=== PATIENT | male | born 1960 | race African-American/Black ===

== ENCOUNTER 2018-03-18 08:16 | Inpatient (IN) | payer BC, OTHER ==
[~2018-03-18] VITALS: Ht 185.4 cm; Wt 136.0 kg
[2018-03-18] VITALS (22 sets, daily range): BP systolic 111–155; BP diastolic 67–102
--- NOTE | ~2018-03-18 | 2DMMODE ---
[facility] [place] [address] 2 D/M-MODE ECHOCARDIOGRAM Name: JASONSADE Room #: 211-P [facility] IN ..#: [id number] Admission: 03/18/18 Attend Phys: Shi Pappas Discharge: Date of : 64 Date of Service: 03/18/18 1523 Report #: [id number] THIS REPORT FOR: //name// APPROVED REPORT Study performed: 03/18/2018 13:54:28 EXAM: Comprehensive 2D, Doppler, and color-flow Echocardiogram Patient Location: ER Status: routine BSA: 2.61 HR: 115 bpm BP: 122/76 mmHg Rhythm: Tachycardia Other Information Study Quality: Adequate Indications Pulmonary Embolism Syncope Tachycardia. Hx: DM 2D Dimensions RVDd: 47.01 mm IVSd: 12.00 (7-11mm) LVOT Diam: 22.79 (18-24mm) LVDd: 45.00 mm PWd: 12.00 (7-11mm) Ascending Ao: 33.08 (22-36mm) LVDs: 33.11 (25-40mm) Aortic Root: 34.52 mm Volumes Left Atrial Volume (Systole) Single Plane 4CH: 44.49 mL Single Plane 2CH: 51.57 mL LA ESV Index: 20.00 mL/m2 Aortic Valve AoV Peak Ramiro.: 0.94 m/s AO Peak Gr.: 3.51 mmHg LVOT Max P.89 mmHg LVOT Max V: 0.69 m/s CARLOS Vmax: 2.99 cm2 Mitral Valve E/A Ratio: 0.5 [facility] [address] [place] [address] 2 D/M-MODE ECHOCARDIOGRAM Name: SADE GOMEZ Room #: 211-P ADM IN ..#: [id number] Admission: 03/18/18 Attend Phys: Shi Pappas Discharge: Date of : 64 Date of Service: 03/18/18 1523 Report #: [id number] MV Decel. Time: 128.97 ms MV E Max Ramiro.: 0.35 m/s MV A Ramiro.: 0.70 m/s MV PHT: 37.40 ms Pulmonary Valve PV Peak Ramiro.: 0.53 m/s PV Peak Gr.: 1.12 mmHg Tricuspid Valve TR Peak Ramiro.: 3.09 m/s RAP Estimate: 15.00 mmHg TR Peak Gr.: 38.16 mmHg PA Pressure: 53.00 mmHg Left Ventricle The left ventricle is normal size. Paradoxical septal motion noted. Mild concentric left ventricular hypertrophy. The left ventricular systolic function is low normal. LVEF is 50%. Mild diastolic dysfunction is present (impaired relaxation pattern). Right Ventricle Right ventricle is mildly dilated. Right ventricle is mildly hypokinetic. Atria The left atrium size is normal. Right atrium is mildly dilated. Aortic Valve The aortic valve is normal in structure. No aortic regurgitation is present. There is no aortic valvular stenosis. Mitral Valve The mitral valve is normal in structure. Trace mitral regurgitation. Tricuspid Valve The tricuspid valve is normal in structure. Mild to moderate tricuspid regurgitation. Estimated pulmonary artery pressure is 50-55mmHg. Pulmonic Valve Pulmonic valve is not well visualized. Trace pulmonic regurgitation. Great Vessels The aortic root is normal in size. The ascending aorta is normal in [facility] [address] [place] [address] 2 D/M-MODE ECHOCARDIOGRAM Name: SADE GOMEZ Room #: 211-P ADM IN M.R.#: [id number] Admission: 03/18/18 Attend Phys: Shi Pappas Discharge: Date of : 64 Date of Service: 03/18/18 1523 Report #: [id number] size. IVC is dilated and collapses <50% with inspiration. Pericardium There is no pericardial effusion. <Conclusion> The left ventricle is normal size. LVEF is 50%. Right ventricle is mildly dilated. Right ventricle is mildly hypokinetic. The aortic valve is normal in structure. The mitral valve is normal in structure. The tricuspid valve is normal in structure. Mild to moderate tricuspid regurgitation. Estimated pulmonary artery pressure is 50-55mmHg. Pulmonic valve is not well visualized. Trace pulmonic regurgitation. There is no pericardial effusion. <ELECTRONICALLY SIGNED> By: Greg Pulido MD 03/18/18 1523 1523 1523 Greg Pulido MD /INF
--- NOTE | ~2018-03-18 | HC ---
[facility] [place] [address] CONSULTATION Name: SADE GOMEZ Room #: 247-P ADM IN M.R.#: [id number] Admission: 03/18/18 Attend Phys: Red Pace MD Discharge: Date of : 64 Report #: [id number] THIS REPORT FOR: //name// CC: Vargas Pace TYPE OF REPORT: Pulmonary consultation. PRIMARY CARE PHYSICIAN: Vargas Kaufman D.O. REFERRING PHYSICIAN: Red Pace M.D. REASON FOR REFERRAL: Pulmonary embolus. HISTORY OF PRESENT ILLNESS: The patient is a 57-year-old -Citizen Of [place] male who presents to the Emergency Room following a syncopal episode. Workup included CT chest angiogram, which showed large bilateral pulmonary embolus. A Pulmonary consultation was requested. The patient states that he was doing fairly well until this morning when he woke up, got up to the restroom and he felt lightheaded and dizzy. He then proceeded to pass out. He states that he passed on his bedroom. He denies any trauma from his syncopal episode. He denies any head trauma. He states that he has passed out in the past few years ago, but that was from after drinking alcohol. He notes that CT chest angiogram shows a large bilateral saddle embolus. Ultrasound also shows evidence of DVT. Otherwise, the patient denies any recent travel. Denies any recent trauma or any surgery. He denies any recent neurologic surgery or ophthalmologic surgery. He does note that a cousin has pulmonary embolus. Cousin from venous thromboembolic disease. PAST MEDICAL HISTORY: Notable for diabetes. PAST SURGICAL HISTORY: Otherwise, unremarkable. ALLERGIES: None. CURRENT MEDICATIONS: Glucophage and Jardiance. FAMILY HISTORY: As mentioned above, cousin with venous thromboembolic disease, otherwise unremarkable. [facility] [address] [place] [address] CONSULTATION Name: SADE GOMEZ Room #: 247-P [facility].#: [id number] Admission: 03/18/18 Attend Phys: Red Pace MD Discharge: Date of : 64 Report #: [id number] SOCIAL HISTORY: Denies any tobacco or alcohol use. REVIEW OF SYSTEMS: As mentioned above, otherwise 10-point system review negative. PHYSICAL EXAMINATION: GENERAL: He is awake and alert, in no apparent distress. VITAL SIGNS: Temperature is 98 degrees Fahrenheit, pulse is 108, respiratory rate is 26, blood pressure is 130/92 mmHg and saturation is 100%. HEENT: Normocephalic and atraumatic. NECK: Supple, without any lymphadenopathy or thyromegaly. CHEST: Breath sounds are clear anteriorly without any rales or wheezes. CARDIOVASCULAR: Heart sounds are distant. Normal S1 and S2. There are no obvious murmurs or gallop. Pulses are 2+/4+ bilaterally. ABDOMEN: Soft and nontender. No organomegaly or masses felt. GENITOURINARY: Deferred. RECTAL: Deferred. EXTREMITIES: There is no edema, cyanosis or clubbing. RADIOLOGICAL DATA: CT chest angiogram as mentioned above. Echocardiogram shows mildly dilated right ventricle and right atrium, LV function is normal, ejection fraction 50% and pulmonary artery pressure measured about 50-55 mmHg. Leg Doppler ultrasound shows a right leg [id number] incomplete occlusive femoral venous thrombus, left lower extremity was normal. CT abdomen and pelvis was otherwise unremarkable other than a grade 1-2 anterior spondylolisthesis involving L5 and S1. CT head was unremarkable. EKG shows sinus tachycardia. LABORATORY DATA: D-dimer was 3.8. Sodium 137, potassium 4.2, chloride 102, CO2 is 26, BUN is 16 and creatinine is 1.5. Liver enzymes are elevated. Troponin is elevated 0.46. Hemoglobin 15.9. Albumin 3.6. IMPRESSION: 1. Large pulmonary embolus in this 57-year-old -Citizen Of [place] male. Leg Doppler ultrasound shows right-sided nonocclusive deep venous thrombosis. It appears to be unprovoked without any risk factors. There is a family history of venous thromboembolic disease. The patient presented with syncope. Please see comments below. 2. Diabetes mellitus type 2. 3. Renal insufficiency, suspect acute kidney injury given recent syncope. 4. Elevated liver enzymes, likely due to shock liver. 5. Elevated troponin, probably related to myocardial stress demand due to pulmonary embolus. EKG as mentioned above. 6. Elevated D-dimer, consistent with pulmonary embolus. RECOMMENDATIONS AND DISCUSSION: Given history of syncope, large bilateral pulmonary embolus with some remaining saddle embolus, the patient will be a [address] [address] CONSULTATION Name: SADE GOMEZ Room #: 247-P ADM IN M.R.#: [id number] Admission: 03/18/18 Attend Phys: Red Pace MD Discharge: Date of : 64 Report #: [id number] candidate for thrombolytic therapy. He did have syncope but did not appear to have any trauma including head trauma. I have discussed the treatment with the patient including thrombolytics. We also discussed the risk of thrombolytics with less than 1% chance of fatal bleeding. Further discussion, he voices understanding and willing to proceed. TPA 100 mg IV piggyback will be given followed by heparin. He is currently on a heparin drip, which will need to be stopped while TPA is being given. He will also be monitored in the ICU closely for any signs of bleeding complications along with hemodynamic instability. IV fluids recommended for renal insufficiency as he was recently given contrast dye along with a presumed transient shock. The patient may be a candidate for indefinite anticoagulation. Once stable as an outpatient, evaluation by environmental protection forester will be helpful. Thank you for the consultation. <ELECTRONICALLY SIGNED> By: Honorio Solitario MD 03/19/18 1830 1756 0144 Honorio Solitario MD /nt
--- NOTE | ~2018-03-18 | EKG ---
[address] [address] ELECTROCARDIOGRAM REPORT Name: SADE GOMEZ Room #: 247-P ADM IN M.R.#: [id number] Admission: 03/18/18 Attend Phys: Red Pace MD Discharge: Date of : 64 Report #: [id number] THIS REPORT FOR: //name// [facility] ED Test Date: 2018-03-18 Test Time: 08:17:43 Pat Name: SADE GOMEZ Department: Room: [facility] Gender: M Recycling Attendant: [facility] : 1960 Requested By: Sarthak Pradhan Order Number: [id number] MD: Robin Vasquez Measurements Intervals [place] Rate: 110 P: 58 [place]: 159 QRS: 73 QRSD: 89 T: 3 QT: 358 QTc: 485 Interpretive Statements Sinus tachycardia Borderline repolarization abnormality No previous ECG available for comparison Electronically Signed On 03-19-2018 8:14:44 CDT by Robin Vasquez [email or web address] <ELECTRONICALLY SIGNED> By: Robin Vasquez MD 03/19/18813 6 6 MD NEGRO Chaudhary
--- NOTE | ~2018-03-18 | HC ---
[facility] [place] [address] CONSULTATION Name: SADE GOMEZ Room #: 219-P ADM IN M.R.#: [id number] Admission: 03/18/18 Attend Phys: Red Pace MD Discharge: Date of : 64 Report #: [id number] THIS REPORT FOR: //name// CC: Vargas Pace DATE OF SERVICE: 03/19/2018 SURGEON: Hitesh Estes MD REASON FOR CONSULTATION: Tongue ecchymosis extending to floor of mouth. HISTORY OF PRESENT ILLNESS: The patient is a 57-year-old gentleman admitted to the Intensive Care Unit on 03/18/2018 with bilateral saddle pulmonary emboli and a right deep venous thrombosis. The patient was treated with partial dose of tPA and developed a submucosal ecchymosis of the ventral surface tongue extending into the floor of mouth without meli hematoma or seroma. This has been stable now for about 24 hours. I was called to evaluate. The patient is seen in his room, eating his dinner. This is minimally uncomfortable. It has not progressed. PAST MEDICAL HISTORY: Significant to the above deep venous thrombosis with secondary bilateral saddle emboli status post partial tPA, history of diabetes type 2, shock liver, acute kidney injury, elevated troponin, peripheral vascular disease. HOME MEDICATIONS: Metformin and Jardiance. ALLERGIES: None. SOCIAL HISTORY: He was a previous smoker. He uses alcohol. REVIEW OF SYSTEMS: Other than the swelling and some pain in his leg, minimal complaints. PHYSICAL EXAMINATION: GENERAL: Shows a well-developed, overweight 57-year-old gentleman seen in Intensive Care Unit with his . He is eating his dinner. He is alert, awake and conversant. VITAL SIGNS: Temperature of 98.6, blood pressure 133/67, pulse of 87; 99% on room air. HEENT: He is normocephalic. Pupils equal, round, reactive to light. Otologic: Some mild cerumen. Intact tympanic membrane. Nasal exam: Deviated septum to the left, nonacute. Oral cavity: Shows some mild ecchymosis to the ventral surface of tongue on the left greater than right side with extension to the [facility] [address] [place] [address] CONSULTATION Name: SADE GOMEZ Room #: 219-P [facility] IN [facility].#: [id number] Admission: 03/18/18 Attend Phys: Red Pace MD Discharge: Date of : 64 Report #: [id number] floor of the mouth surrounding Hernando's duct. On bimanual palpation, there is no fluctuance. There is no firmness to the floor of mouth. There is no airway compromise. NECK: Without adenopathy or masses. No significant submental or submandibular swelling. LABORATORY DATA: CBC this morning shows a white count of 7100, hemoglobin of 13.1, PTT of 29.6 on Coumadin. IMPRESSION: 1. Ventral surface of tongue ecchymosis extending to floor of mouth without progression over the last 24 hours, likely secondary to patient's recent tPA. The patient denies any trauma to his tongue such as biting or dysfunctional tooth. This is not consistent with angioedema as it is asymmetric and clearly ecchymotic. This can be a rare complication of tPA. 2. Deep venous thrombosis. 3. Bilateral saddle emboli. PLAN: The patient is currently on heparin anticoagulation and does warrant close evaluation for any progression. The patient has stood the test of time over 24 hours with no worsening. I related to he and his that this is not something that would be surgically drained. There is no fluctuance and he is anticoagulated now. This should resorb on its own. The patient is probably not a candidate for further tPA at this point or in the future; however, he probably will require lifelong anticoagulation. Symptomatic care such as ice chips to suck on for oral cavity discomfort. I have discussed this with him and his . I will not plan to follow along with you, but I am available for any change in status. I appreciate the consultation. <ELECTRONICALLY SIGNED> By: Hitesh Estes MD 03/23/18 1206 1743 0420 Hitesh Estes MD /nt
[2018-03-18 08:39] LABS: ABSOLUTE NEUTROPHILS 8.2 thou/uL (1.4-8.2); BASOPHILS 0.5 % (0.0-2.0); EOSINOPHILS 0.7 % (0.0-3.0); HEMATOCRIT 48.3 % (42.0-52.0); HEMOGLOBIN 15.9 gm/dL (14.0-18.0); LYMPHOCYTES 15.3 % (24.0-44.0); MCHC 32.9 g/dL (28.0-37.0); MCV 88.2 fL (80.0-100.0); MONOCYTES 3.8 % (1.0-8.0); PLATELET COUNT 129 thou/uL (150-400); POLYS 79.7 % (36.0-66.0); RBC 5.47 mil/uL (4.50-6.00); WBC 10.2 thou/uL (4.0-11.0)
[2018-03-18] MEDS ORDERED: GLUCOPHAGE XR500 MG PO (08:39)
[2018-03-18] MEDS ORDERED: JARDIANCE10 MG PO (08:39)
[2018-03-18 08:49] LABS: ANION GAP 9 mmol/L (7-16); BUN 16 mg/dL (7-18); CALCIUM 9.3 mg/dL (8.5-10.1); CHLORIDE 102 mmol/L (98-107); CO2 26 mmol/L (21-32); CREATININE 1.5 mg/dL (0.7-1.3); GLUCOSE 264 mg/dL (74-106); SODIUM 137 mmol/L (136-145)
[2018-03-18 08:50] LABS: POTASSIUM 4.2 mmol/L (3.5-5.1)
[2018-03-18 08:57] LABS: ALBUMIN 3.6 g/dL (3.4-5.0); MAGNESIUM 2.2 mg/dL (1.8-2.4); SGOT 260 U/L (15-37); SGPT 323 U/L (30-65); TOTAL PROTEIN 8.4 g/dL (6.4-8.2); TROPONIN-I <0.06 ng/mL (<0.06)
[2018-03-18 11:15] LABS: URINE BILIRUBIN NEGATIVE (Negative); URINE BLOOD 2+ (Negative); URINE CLARITY CLEAR; URINE COLOR YELLOW; URINE GLUCOSE-RANDOM* 3+ (Negative); URINE KETONES TRACE (Negative); URINE LEUKOCYTES-REFLEX NEGATIVE (Negative); URINE NITRITE-REFLEX NEGATIVE (Negative); URINE PROTEIN (DIPSTICK) 1+ (Negative); URINE SPECIFIC GRAVITY 1.025 (1.005-1.035); URINE UROBILINOGEN 0.2 E.U./dl (0.2-1.0)
[2018-03-18 11:27] LABS: BACTERIA-REFLEX 1-9 Few /HPF (None Seen); CASTS None Seen /LPF (None Seen); CRYSTALS None Seen /LPF (None Seen); SQUAMOUS None Seen /LPF (0-3); URINE RBC 3-10 Few /HPF (0-2); URINE WBC-REFLEX None Seen /HPF (0-5)
[2018-03-18 23:09] LABS: HAV IgM AB (ANTI-HAV IgM) Negative (Negative); HEPATITIS B SURFACE AG Negative (Negative); HEPATITIS C VIRUS AB <0.1 (0.0-0.9)
[2018-03-19] VITALS (55 sets, daily range): BP systolic 108–156; BP diastolic 65–96
[2018-03-19 06:13] LABS: HEMATOCRIT 40.2 % (42.0-52.0); MCH 29.3 pg (26.0-34.0); MCHC 33.6 g/dL (28.0-37.0); MCV 87.2 fL (80.0-100.0); RBC 4.61 mil/uL (4.50-6.00); RDW 14.9 % (10.5-14.5); WBC 7.1 thou/uL (4.0-11.0)
[2018-03-19 06:17] LABS: HEMOGLOBIN 13.5 gm/dL (14.0-18.0)
[2018-03-19 06:34] LABS: ALBUMIN 2.8 g/dL (3.4-5.0); CALCIUM 7.9 mg/dL (8.5-10.1); POTASSIUM 3.7 mmol/L (3.5-5.1); TOTAL BILIRUBIN 0.5 mg/dL (<0.1-1.0)
[2018-03-20] VITALS (7 sets, daily range): BP systolic 122–135; BP diastolic 77–95
[2018-03-20 05:31] LABS: ABSOLUTE NEUTROPHILS 5.7 thou/uL (1.4-8.2); BASOPHILS 0.2 % (0.0-2.0); EOSINOPHILS 0.2 % (0.0-3.0); HEMATOCRIT 38.2 % (42.0-52.0); HEMOGLOBIN 12.3 gm/dL (14.0-18.0); LYMPHOCYTES 20.7 % (24.0-44.0); MCH 28.1 pg (26.0-34.0); MCHC 32.3 g/dL (28.0-37.0); MCV 87.1 fL (80.0-100.0); MONOCYTES 7.3 % (1.0-8.0); PLATELET COUNT 121 thou/uL (150-400); POLYS 71.6 % (36.0-66.0); RBC 4.39 mil/uL (4.50-6.00); RDW 15.3 % (10.5-14.5)
[2018-03-20 05:34] LABS: CALCIUM 7.5 mg/dL (8.5-10.1); POTASSIUM 3.3 mmol/L (3.5-5.1)
[2018-03-20 05:37] LABS: INR 1.2
[2018-03-21 02:55] LABS: BASOPHILS 0.3 % (0.0-2.0); EOSINOPHILS 0.9 % (0.0-3.0); HEMATOCRIT 40.5 % (42.0-52.0); HEMOGLOBIN 13.1 gm/dL (14.0-18.0); LYMPHOCYTES 27.4 % (24.0-44.0); MCH 28.2 pg (26.0-34.0); MCHC 32.3 g/dL (28.0-37.0); MCV 87.1 fL (80.0-100.0); MONOCYTES 8.8 % (1.0-8.0); PLATELET COUNT 136 thou/uL (150-400); POLYS 62.6 % (36.0-66.0); RBC 4.65 mil/uL (4.50-6.00); RDW 14.8 % (10.5-14.5); WBC 6.4 thou/uL (4.0-11.0)
[2018-03-21 03:02] LABS: CALCIUM 7.4 mg/dL (8.5-10.1); CREATININE 0.9 mg/dL (0.7-1.3)
[2018-03-21 03:04] LABS: POTASSIUM 2.9 mmol/L (3.5-5.1)
[2018-03-21 05:18] VITALS: BP 131/82
[2018-03-21 08:00] VITALS: BP 126/83
[2018-03-21 11:30] VITALS: BP 134/75
[2018-03-21 16:00] VITALS: BP 117/58
[2018-03-21 20:35] VITALS: BP 132/62
[2018-03-22 04:45] VITALS: BP 129/80
[2018-03-22 08:26] VITALS: BP 127/80
[2018-03-22 15:15] VITALS: BP 115/41
[2018-03-22 20:30] VITALS: BP 127/60
[2018-03-23 04:45] VITALS: BP 131/63
[2018-03-23 09:19] VITALS: BP 123/56
[2018-03-23 11:14] VITALS: BP 123/56
[2018-03-23 11:24] VITALS: BP 130/67
[2018-03-23 18:06] VITALS: BP 136/67
[2018-03-23 19:08] VITALS: BP 129/64
[2018-03-24 04:06] VITALS: BP 126/70
[2018-03-24 08:41] VITALS: BP 138/61
[2018-03-24 11:38] VITALS: BP 136/76
[2018-03-24] MEDS ORDERED: PRADAXA150 MG PO (13:55)
[2018-03-24 14:04] LABS: HEMATOCRIT 47.2 % (42.0-52.0); HEMOGLOBIN 15.4 gm/dL (14.0-18.0); MCH 28.2 pg (26.0-34.0); MCHC 32.5 g/dL (28.0-37.0); MCV 86.6 fL (80.0-100.0); RBC 5.46 mil/uL (4.50-6.00); RDW 14.7 % (10.5-14.5); WBC 5.7 thou/uL (4.0-11.0)
[2018-03-24 14:14] LABS: INR 1.2
[2018-03-24 14:25] LABS: ALBUMIN 3.6 g/dL (3.4-5.0); CALCIUM 9.1 mg/dL (8.5-10.1); CREATININE 1.2 mg/dL (0.7-1.3); POTASSIUM 4.1 mmol/L (3.5-5.1); TOTAL BILIRUBIN 0.4 mg/dL (<0.1-1.0); TOTAL PROTEIN 8.4 g/dL (6.4-8.2)
[2018-03-24] MEDS ORDERED: ELIQUIS5 MG PO (15:39)
[2018-03-24 15:57] VITALS: BP 123/56
[2018-03-24 18:17] VITALS: BP 130/56
== END 2018-03-24 20:07 | disposition home or self-care (01) | DRG 175 ==
LOC: ER 08:16 → EROBS 12:43 → ICU 12:43 → 2N 14:26 → ICU 19:37 → 2N 03-20 02:03
PROVIDERS: Emergency Medicine; Family Medicine; Hospitalist
PROC: 05HY33Z Insertion of Infusion Device into Upper Vein, Percutaneous Approach (ICD-10-PCS; principal; 2018-03-18)
PROC: B54MZZA Ultrasonography of Right Upper Extremity Veins, Guidance (ICD-10-PCS; principal; 2018-03-18)
PROC: 5A09357 Assistance with Respiratory Ventilation, Less than 24 Consecutive Hours, Continuous Positive Airway Pressure (ICD-10-PCS; principal; 2018-03-18)
PROC: 5A09357 Assistance with Respiratory Ventilation, Less than 24 Consecutive Hours, Continuous Positive Airway Pressure (ICD-10-PCS; 2018-03-22)
PROC: 5A09357 Assistance with Respiratory Ventilation, Less than 24 Consecutive Hours, Continuous Positive Airway Pressure (ICD-10-PCS; 2018-03-23)
PROC: 5A09357 Assistance with Respiratory Ventilation, Less than 24 Consecutive Hours, Continuous Positive Airway Pressure (ICD-10-PCS; 2018-03-24)
DX: I26.92 Saddle embolus of pulmonary artery without acute cor pulmonale (principal); K72.00 Acute and subacute hepatic failure without coma; N17.9 Acute kidney failure, unspecified; I82.411 Acute embolism and thrombosis of right femoral vein; N18.9 Chronic kidney disease, unspecified; E86.0 Dehydration; I50.810 Right heart failure, unspecified; I27.20 Pulmonary hypertension, unspecified; E11.65 Type 2 diabetes mellitus with hyperglycemia; S00.532A Contusion of oral cavity, initial encounter; E11.51 Type 2 diabetes mellitus with diabetic peripheral angiopathy without gangrene; X58.XXXA Exposure to other specified factors, initial encounter; Y93.89 Activity, other specified; Z87.891 Personal history of nicotine dependence; Y92.89 Other specified places as the place of occurrence of the external cause; Y99.8 Other external cause status; Z79.84 Long term (current) use of oral hypoglycemic drugs; Z79.899 Other long term (current) drug therapy; Z88.8 Allergy status to other drugs, medicaments and biological substances
CPT/HCPCS: 10078; 10081; 27000

== ENCOUNTER → 2018-04-14 | Outpatient (CLI) | payer BC, OTHER ==
[~2018-04-14] MED LIST: ELIQUIS5 MG PO; GLUCOPHAGE XR500 MG PO; JARDIANCE10 MG PO; PRADAXA150 MG PO
== END ==
LOC: ULTRA 12:59
DX: I82.431 Acute embolism and thrombosis of right popliteal vein (principal); I26.02 Saddle embolus of pulmonary artery with acute cor pulmonale

== ENCOUNTER → 2018-04-27 | Outpatient (CLI) | payer BC, OTHER | LOC: ULTRA 14:34 | DX: M79.89 Other specified soft tissue disorders (principal) ==

== ENCOUNTER → 2018-08-03 | Outpatient (CLI) | payer BC, OTHER | LOC: RAD 12:36 | DX: R06.09 Other forms of dyspnea (principal); I82.403 Acute embolism and thrombosis of unspecified deep veins of lower extremity, bilateral; R06.02 Shortness of breath; M47.814 Spondylosis without myelopathy or radiculopathy, thoracic region; Z88.8 Allergy status to other drugs, medicaments and biological substances; Z86.711 Personal history of pulmonary embolism ==